=== PATIENT | male | born 1945 | race Caucasian/White ===

== ENCOUNTER 2018-11-08 10:39 | Inpatient (IN) | payer OTHER, BC ==
[~2018-11-08] VITALS: Ht 190.5 cm; Wt 97.0 kg
[2018-11-08 10:40] VITALS: BP 152/93
[2018-11-08 11:10] LABS: ABSOLUTE NEUTROPHILS 4.8 thou/uL (1.4-8.2); BASOPHILS 0.7 % (0.0-2.0); EOSINOPHILS 1.5 % (0.0-3.0); LYMPHOCYTES 17.3 % (24.0-44.0); MCH 31.6 pg (26.0-34.0); MCHC 34.2 g/dL (28.0-37.0); MCV 92.5 fL (80.0-100.0); MONOCYTES 7.2 % (1.0-8.0); PLATELET COUNT 254 thou/uL (150-400); POLYS 73.3 % (36.0-66.0); RBC 4.43 mil/uL (4.50-6.00); RDW 13.9 % (10.5-14.5); WBC 6.5 thou/uL (4.0-11.0)
[2018-11-08 11:22] LABS: ANION GAP 7 mmol/L (7-16); BUN 8 mg/dL (7-18); CALCIUM 9.5 mg/dL (8.5-10.1); CHLORIDE 106 mmol/L (98-107); CO2 26 mmol/L (21-32); GLUCOSE 123 mg/dL (74-106); SODIUM 139 mmol/L (136-145)
[2018-11-08] MEDS ORDERED: LIPITOR 20 MG T20 M1 PO (11:25)
[2018-11-08] MEDS ORDERED: AMLODIPINE BESY10 MG PO (11:25)
[2018-11-08 11:32] LABS: ALBUMIN 3.8 g/dL (3.4-5.0); SGOT 12 U/L (15-37); SGPT 22 U/L (30-65); TOTAL BILIRUBIN 0.8 mg/dL (<0.1-1.0); TOTAL PROTEIN 6.8 g/dL (6.4-8.2); TROPONIN-I <0.06 ng/mL (<0.06)
--- NOTE | 2018-11-08 13:24 | EKG ---
[address] [place] [address] ELECTROCARDIOGRAM REPORT Name: CHELSEA WEBSTER Room #: 170-11 ADM IN M.R.#: [id number] Admission: 11/08/18 Attend Phys: Arya Patton MD Discharge: Date of : 43 Report #: [id number] THIS REPORT FOR: //name// [facility] ED Test Date: 2018-11-08 Test Time: 10:43:52 Pat Name: CHELSEA WEBSTER Department: Room: 170 Gender: M Manager Floor: [place]den SCALES RN : 1945 Requested By: Nghia Diaz Order Number: [id number] MD: Jack Treadwell Measurements Intervals [place] Rate: 116 P: [place]: QRS: 121 QRSD: 96 T: -6 QT: 331 QTc: 460 Interpretive Statements Atrial fibrillation Right axis deviation Borderline low voltage, extremity leads No previous ECG available for comparison Electronically Signed On 11-08-2018 13:24:01 CDT by Jack Treadwell [email or web address] <ELECTRONICALLY SIGNED> By: Jack Treadwell MD 11/08/18 1324 1043 [id number] Jack Treadwell MD /SHWETA
[2018-11-08 15:07] VITALS: BP 123/91
[2018-11-08 15:16] VITALS: BP 123/91
--- NOTE | 2018-11-08 15:34 | NUR ---
THIS IS 2ND CALL TO GIVE REPORT TO MARYBEL IN CCU; ASKS IF SHE CAN CALL BACK IN APPROX 5 MIN
--- NOTE | 2018-11-08 15:49 | NUR ---
REPORT GIVEN TO INPATIENT NURSE BUT ADVISED ROOM NOT YET CLEAN
--- NOTE | 2018-11-08 16:30 | 2DMMODE ---
[facility] [place] [address] 2 D/M-MODE ECHOCARDIOGRAM Name: CHELSEA WEBSTER Room #: 170-11 ADM IN M.R.#: [id number] Admission: 11/08/18 Attend Phys: Arya Patton MD Discharge: Date of : 43 Date of Service: 11/08/18 1630 Report #: [id number] THIS REPORT FOR: //name// APPROVED REPORT Study performed: 11/08/2018 15:25:40 EXAM: Comprehensive 2D, Doppler, and color-flow Echocardiogram Patient Location: ER Room #: 11 Status: routine BSA: 2.23 HR: 82 bpm BP: 119/83 mmHg Rhythm: Atrial Fibrillation Other Information Study Quality: Good Indications Atrial Fibrillation Hypertension/HDD 2D Dimensions RVDd: 32.49 mm IVSd: 14.31 (7-11mm) LVOT Diam: 22.67 (18-24mm) LVDd: 47.72 mm PWd: 14.12 (7-11mm) Ascending Ao: 32.76 (22-36mm) LVDs: 34.29 (25-40mm) Aortic Root: 36.81 mm IVC: 11.00 mm Volumes Left Atrial Volume (Systole) Single Plane 4CH: 59.13 mL Single Plane 2CH: 72.47 mL LA ESV Index: 32.00 mL/m2 Aortic Valve AoV Peak Wilbert.: 1.08 m/s AO Peak Gr.: 4.65 mmHg LVOT Max P.08 mmHg LVOT Max V: 1.13 m/s ANGELA Vmax: 4.22 cm2 Pulmonary Valve PV Peak Wilbert.: 0.99 m/s PV Peak Gr.: 3.95 mmHg [facility] [address] [place] [address] 2 D/M-MODE ECHOCARDIOGRAM Name: CHELSEA WEBSTER Room #: 170- ADM IN .R.#: [id number] Admission: 11/08/18 Attend Phys: Arya Patton MD Discharge: Date of : 43 Date of Service: 11/08/18 1630 Report #: [id number] Tricuspid Valve TR Peak Wilbert.: 2.08 m/s TR Peak Gr.: 17.38 mmHg PA Pressure: 22.00 mmHg Left Ventricle The left ventricle is normal size. There is normal LV segmental wall motion. Mild concentric left ventricular hypertrophy. The left ventricular systolic function is normal. The left ventricular ejection fraction is within the normal range. LVEF is 60-65%. This study is not technically sufficient to allow evaluation of the LV diastolic function due to atrial fibrillation. Right Ventricle The right ventricle is normal size. The right ventricular systolic function is normal. Atria Left atrium is at the upper limits of normal. The right atrium size is normal. Aortic Valve The aortic valve is normal in structure. No aortic regurgitation is present. There is no aortic valvular stenosis. Mitral Valve The mitral valve is normal in structure. Trace mitral regurgitation. No evidence of mitral valve stenosis. Tricuspid Valve The tricuspid valve is normal in structure. There is trace tricuspid regurgitation. Estimated PAP 22 mmHg. There is no pulmonary hypertension. Pulmonic Valve The pulmonary valve is normal in structure. Trace pulmonic regurgitation. Great Vessels The aortic root is normal in size. IVC is normal in size and collapses >50% with inspiration. Pericardium There is no pericardial effusion. <Conclusion> [facility] [address] [place] [address] 2 D/M-MODE ECHOCARDIOGRAM Name: CHELSEA WEBSTER Room #: 170-11 ADM IN M.R.#: [id number] Admission: 11/08/18 Attend Phys: Arya Patton MD Discharge: Date of : 43 Date of Service: 11/08/18 1630 Report #: [id number] The left ventricle is normal size. LVEF is 60-65%. Left atrium is at the upper limits of normal. The aortic valve is normal in structure. The mitral valve is normal in structure. Trace mitral regurgitation. The tricuspid valve is normal in structure. There is trace tricuspid regurgitation. Estimated PAP 22 mmHg. There is no pulmonary hypertension. The pulmonary valve is normal in structure. Trace pulmonic regurgitation. There is no pericardial effusion. <ELECTRONICALLY SIGNED> By: Kem Smith MD 11/08/18 1630 163 163 Kem Smith MD /INF
[2018-11-08 17:18] VITALS: BP 112/87
--- NOTE | 2018-11-08 18:06 | NUR ---
PT ADMITED FROM ER. ALERT AND ORIENTED. ADMISSION HX AND ASSESSMENT COMPLETED. ORDERS NOTED. PT ORIENTED TO THE ROOM AND THE CALL LIGHT SYSTEM. NO CARDIAC DISTRESS NOTED. WILL CONTINUE TO MONITOR.
[2018-11-08 20:24] VITALS: BP 103/65
[2018-11-09 01:20] VITALS: BP 110/76
--- NOTE | 2018-11-09 05:09 | NUR ---
ASSESSMENTS CHARTED. PT IS ASYMPTOMATIC WITH AFIB. ON CARDIZEM DRIP TITRATED TO KEEP HR LESS THAN 100. PT UP AD [place]RE[place] IN ROOM. PLAN OF CARE TO HAVE COMPLETE ECHO. DENIES PAIN.
[2018-11-09 06:03] VITALS: BP 116/66
[2018-11-09 08:21] VITALS: BP 119/72
[2018-11-09 12:48] VITALS: BP 126/84
[2018-11-09] MEDS ORDERED: METOPROLOL SUCC50 MG PO (13:11)
[2018-11-09] MEDS ORDERED: XARELTO20 MG PO (13:11)
[2018-11-09 13:53] VITALS: BP 126/84
== END 2018-11-09 14:29 | disposition home or self-care (01) | DRG 310 ==
LOC: ER 10:39 → EROBS 12:32 → 2N 15:56
PROVIDERS: Emergency Medicine; ADMIT Internal Medicine
DX: I48.91 Unspecified atrial fibrillation (principal); E78.5 Hyperlipidemia, unspecified; R73.9 Hyperglycemia, unspecified; I10 Essential (primary) hypertension; Z86.010 Personal history of colon polyps; Z79.82 Long term (current) use of aspirin; Z79.899 Other long term (current) drug therapy; Z88.0 Allergy status to penicillin; Z90.49 Acquired absence of other specified parts of digestive tract
CPT/HCPCS: 10081

== ENCOUNTER → 2018-11-08 | Outpatient (CLI) | payer OTHER, BC ==
[~2018-11-08] MED LIST: AMLODIPINE BESY10 MG PO; FLECAINIDE ACET50 M1 PO; LIPITOR 20 MG T20 M1 PO; METOPROLOL SUCC50 MG PO; XARELTO20 MG PO
--- NOTE | 2018-11-08 13:22 | EKG ---
[place] [address] [facility] [place] [address] ELECTROCARDIOGRAM REPORT Name: CHELSEA WEBSTER [id number] Admission: 11/08/18 Attend Phys: Ariel Rogers Discharge: Date of : 43 Report #: [id number] THIS REPORT FOR: //name// [facility] Test Date: 2018-11-08 Test Time: 09:22:33 Pat Name: CHELSEA WEBSTER Department: Room: Gender: M Evs Tech: DANILO : 1945 Requested By: Sylvie Kim Order Number: [id number] MD: Jack Treadwell Measurements Intervals [place] Rate: 130 P: [place]: QRS: 125 QRSD: 102 T: -10 QT: 316 QTc: 465 Interpretive Statements Atrial fibrillation Right axis deviation Borderline low voltage, extremity leads Abnormal R-wave progression, late transition No previous ECG available for comparison Electronically Signed On 11-08-2018 13:21:52 CDT by Jack Treadwell [email or web address] <ELECTRONICALLY SIGNED> By: Jack Treadwell MD 11/08/18 1321 1 1 Jack Treadwell MD /SHWETA
== END | disposition home or self-care (01) ==
LOC: GI 08:29
DX: I48.91 Unspecified atrial fibrillation (principal); I10 Essential (primary) hypertension; Z79.899 Other long term (current) drug therapy; Z88.0 Allergy status to penicillin; Z79.01 Long term (current) use of anticoagulants

== ENCOUNTER → 2018-12-13 | Outpatient (CLI) | payer OTHER, BC ==
[~2018-12-13] VITALS: Ht 188 cm; Wt 100.2 kg
[2018-12-13 09:36] VITALS: BP 124/85
[2018-12-13 09:47] LABS: ABSOLUTE NEUTROPHILS 3.8 thou/uL (1.4-8.2); BASOPHILS 0.7 % (0.0-2.0); EOSINOPHILS 3.6 % (0.0-3.0); HEMATOCRIT 42.8 % (42.0-52.0); HEMOGLOBIN 14.2 gm/dL (14.0-18.0); LYMPHOCYTES 22.6 % (24.0-44.0); MCH 31.2 pg (26.0-34.0); MCHC 33.3 g/dL (28.0-37.0); MCV 93.7 fL (80.0-100.0); MONOCYTES 9.1 % (1.0-8.0); PLATELET COUNT 254 thou/uL (150-400); RBC 4.57 mil/uL (4.50-6.00); RDW 13.7 % (10.5-14.5); WBC 5.9 thou/uL (4.0-11.0)
[2018-12-13 09:57] LABS: CALCIUM 9.6 mg/dL (8.5-10.1); CREATININE 0.9 mg/dL (0.7-1.3)
[2018-12-13 10:02] LABS: APTT 29.5 Seconds (24.5-32.8); INR 1.1; PROTIME 11.1 Seconds (9.3-11.4)
[2018-12-13 10:03] LABS: ALBUMIN 3.9 g/dL (3.4-5.0); TOTAL BILIRUBIN 0.7 mg/dL (<0.1-1.0); TOTAL PROTEIN 6.9 g/dL (6.4-8.2)
--- NOTE | 2018-12-21 11:41 | P ---
[facility] [place] [address] PROCEDURE REPORT Name: CHELSEA WEBSTER Room #: REG [facility]#: [id number] Admission: 12/13/18 Attend Phys: Jack Treadwell MD Discharge: Date of : 43 Report #: [id number] THIS REPORT FOR: //name// CC: Jack Lee PROCEDURE: Cardioversion. PREOPERATIVE DIAGNOSIS: Atrial fibrillation. POSTOPERATIVE DIAGNOSIS: Atrial fibrillation. DESCRIPTION OF PROCEDURE: The patient underwent informed consent. He was then prepped in a standard fashion. He was then sedated by the Anesthesiology service and once sedated underwent a 200 joule synchronized cardioversion with congregational of sinus rhythm. There were no procedure related complications. CONCLUSIONS: Successful DC cardioversion with congregational of sinus rhythm. <ELECTRONICALLY SIGNED> By: Jack Treadwell MD 12/21/18 1141 1054 0032 Jack Treadwell MD /nt
== END | disposition home or self-care (01) ==
LOC: CATH 09:07
PROVIDERS: Internal Medicine Cardiovascular Disease
DX: I48.91 Unspecified atrial fibrillation (principal); I10 Essential (primary) hypertension; E78.5 Hyperlipidemia, unspecified; Z82.49 Family history of ischemic heart disease and other diseases of the circulatory system; Z79.01 Long term (current) use of anticoagulants; Z98.890 Other specified postprocedural states; Z79.899 Other long term (current) drug therapy; Z85.46 Personal history of malignant neoplasm of prostate; Z88.0 Allergy status to penicillin
CPT/HCPCS: 62110; 62900

== ENCOUNTER → 2019-07-18 | Outpatient (CLI) | payer OTHER, BC | LOC: SJCVC 16:31 | DX: I48.0 Paroxysmal atrial fibrillation (principal); I10 Essential (primary) hypertension; E78.5 Hyperlipidemia, unspecified; E78.00 Pure hypercholesterolemia, unspecified; Z79.899 Other long term (current) drug therapy; Z82.49 Family history of ischemic heart disease and other diseases of the circulatory system ==

== ENCOUNTER → 2020-01-22 | Outpatient (CLI) | payer OTHER, BC | LOC: SJCVC 13:04 | PROVIDERS: ATTEND Internal Medicine Cardiovascular Disease | DX: I44.5 Left posterior fascicular block (principal); I45.2 Bifascicular block; I44.0 Atrioventricular block, first degree; I45.10 Unspecified right bundle-branch block; R94.31 Abnormal electrocardiogram [ECG] [EKG]; I11.9 Hypertensive heart disease without heart failure; I48.20 Chronic atrial fibrillation, unspecified; E78.00 Pure hypercholesterolemia, unspecified ==

== ENCOUNTER → 2020-07-22 | Outpatient (CLI) | payer OTHER, BC | LOC: SJCVC 13:03 | PROVIDERS: ATTEND Internal Medicine Cardiovascular Disease | DX: R94.31 Abnormal electrocardiogram [ECG] [EKG] (principal); I45.2 Bifascicular block; I44.0 Atrioventricular block, first degree; I49.1 Atrial premature depolarization; I10 Essential (primary) hypertension; I48.0 Paroxysmal atrial fibrillation; E78.00 Pure hypercholesterolemia, unspecified; C61 Malignant neoplasm of prostate; I44.7 Left bundle-branch block, unspecified; H33.21 Serous retinal detachment, right eye; Z79.899 Other long term (current) drug therapy; Z82.49 Family history of ischemic heart disease and other diseases of the circulatory system; Z88.0 Allergy status to penicillin ==

== ENCOUNTER → 2021-01-15 | Outpatient (CLI) | payer OTHER, BC | LOC: SJCVCIMAG 01-06 08:19 | PROVIDERS: ATTEND Internal Medicine Cardiovascular Disease | DX: R94.31 Abnormal electrocardiogram [ECG] [EKG] (principal); I44.0 Atrioventricular block, first degree; I45.2 Bifascicular block; R00.1 Bradycardia, unspecified; I08.8 Other rheumatic multiple valve diseases; I48.0 Paroxysmal atrial fibrillation; I10 Essential (primary) hypertension; E78.00 Pure hypercholesterolemia, unspecified; Z88.0 Allergy status to penicillin; Z79.899 Other long term (current) drug therapy ==